=== PATIENT | female | born 1935 | race Caucasian/White ===

== ENCOUNTER 2020-02-24 18:02 | Emergency (ER) | payer BC ==
[~2020-02-24] VITALS: Ht 162.6 cm; Wt 71.2 kg
[~2020-02-24 18:02] MED LIST: CALCIUM PO; CARDURA2 MG PO; DILTIAZEM ER240 M1 PO; MULTIVITAMINS PO; OMEGA 3 PO; PERCOCET 5-3251 EACH PO; QUINAPRIL 20 MG20 MG PO; SIMVASTATIN20 MG PO; VITAMINC500 PO
[2020-02-24 19:18] LABS: ABSOLUTE EOSINOPHILS 0.1 thou/uL (0.0-0.7); ABSOLUTE LYMPHOCYTES 2.1 thou/uL (0.8-5.3); ABSOLUTE MONOCYTES 0.6 thou/uL (0.0-1.2); ABSOLUTE NEUTROPHILS 4.1 thou/uL (1.6-8.1); BASOPHILS 0.4 %; EOSINOPHILS 1.3 %; HEMOGLOBIN 14.6 gm/dL (12.0-15.0); LYMPHOCYTES 30.6 %; MCH 30.5 pg (26.0-34.0); MCHC 32.4 g/dL (28.0-37.0); MCV 93.9 fL (80.0-100.0); MONOCYTES 9.2 %; MPV 7.8 fl. (7.2-11.1); NUCLEATED RBCS 0 /100WBC; PLATELET COUNT* 73 thou/uL (150-400); POLYS 58.5 %; RBC 4.79 mil/uL (4.20-5.00); RDW-CV 15.3 % (10.5-14.5); WBC 6.9 thou/uL (4.0-11.0)
[2020-02-24 19:35] LABS: POTASSIUM 4.1 mmol/L (3.5-5.1)
[2020-02-24 19:39] LABS: ALBUMIN 4.1 g/dL (3.4-5.0); TOTAL BILIRUBIN 0.5 mg/dL (<0.1-1.0); TOTAL PROTEIN 7.4 g/dL (6.4-8.2)
[2020-02-24] MEDS ORDERED: APAP W/CODEINE1 TA2 PO ×2 (19:44→19:45)
[2020-02-24 20:08] LABS: URINE BILIRUBIN NEGATIVE (Negative); URINE BLOOD NEGATIVE (Negative); URINE CLARITY CLEAR; URINE COLOR YELLOW; URINE GLUCOSE-RANDOM NEGATIVE (Negative); URINE KETONES NEGATIVE (Negative); URINE NITRITE-REFLEX NEGATIVE (Negative); URINE PROTEIN NEGATIVE (Negative); URINE SPECIFIC GRAVITY 1.025 (1.005-1.030); URINE UROBILINOGEN 0.2 E.U./dl (0.2-1.0)
[2020-02-24 20:09] LABS: URINE LEUKOCYTES-REFLEX 2+ (Negative)
[2020-02-24 20:15] LABS: SQUAMOUS 4-10 Moderate /LPF (0-3); URINE RBC None Seen /HPF (0-2); URINE WBC-REFLEX >25 Many /HPF (0-5)
[2020-02-24 20:16] LABS: BACTERIA-REFLEX None Seen /HPF (None Seen); CASTS None Seen /LPF (None Seen); CRYSTALS None Seen /LPF (None Seen); MUCUS 0-3 Light strn/LPF (None Seen)
[2020-02-24 20:21] LABS: PLATELET ESTIMATE DECREASED
[2020-02-24] MEDS ORDERED: MACROBID 100 M100 M1 PO (20:42)
[2020-02-24 21:04] VITALS: BP 168/88
--- NOTE | 2020-02-25 09:50 | EKG ---
[place] [address] ELECTROCARDIOGRAM REPORT Name: NICHOLE LEI Room: [facility]#: [id number] Admission: 02/24/20 Attend Phys: Discharge: 02/24/20 Date of : 39 Date of Service: 02/24/202025 Report #: [id number] THIS REPORT FOR: //name// [facility] ED Test Date: 2020-02-24 Test Time: 20:26:19 Pat Name: NICHOLE LEI Department: Room: Gender: Car Wi[employer]: : 1935 Requested By: Immanuel Nguyen Order Number: [id number] MD: Roby Sandoval Measurements Intervals [place] Rate: 66 P: 1 VA: 166 QRS: -44 QRSD: 105 T: -2 QT: 455 QTc: 477 Interpretive Statements Sinus rhythm Ventricular bigeminy Incomplete RBBB and LAFB Abnormal R-wave progression, late transition Compared to ECG 01/05/2013 10:44:55 Ventricular premature complex(es) now present Left anterior fascicular block persists Incomplete right bundle-branch block now present Electronically Signed On 02-25-2020 9:50:34 CDT by Roby Sandoval [email or web address] <ELECTRONICALLY SIGNED> By: Roby Sandoval MD, FACC 02/25/20 0950 25 25 Roby Sandoval MD, FACC /EPI
== END 2020-02-24 21:07 | disposition home or self-care (01) ==
LOC: M.ERS 18:02
PROVIDERS: Physician Assistant
DX: M25.511 Pain in right shoulder (principal); I10 Essential (primary) hypertension; Z88.8 Allergy status to other drugs, medicaments and biological substances; Z88.0 Allergy status to penicillin; Z88.6 Allergy status to analgesic agent; Z90.710 Acquired absence of both cervix and uterus; Z90.89 Acquired absence of other organs; W18.39XA Other fall on same level, initial encounter; Y93.89 Activity, other specified; Y92.89 Other specified places as the place of occurrence of the external cause; Y99.8 Other external cause status